=== PATIENT | male | born 1960 | race Two or more races ===

== ENCOUNTER 2025-06-04 19:32 | Inpatient (IN) | payer MEDICAID, OTHER ==
[~2025-06-04] VITALS: Ht 167.6 cm; Wt 115.7 kg
[2025-06-04] MEDS ORDERED: NOREPINEPHRINE 8MG/250ML RTU 250 ML IV ONE (19:52)
[2025-06-04] MEDS: NOREPINEPHRINE 8 MG in IV D5W 242 ML IV PRN ×2 (20:02→23:23)
[2025-06-04] MEDS ORDERED: ONDANSETRON HCL/PF 4 MG/2 ML VIAL ONE (20:17)
[2025-06-04 20:19] LABS: ALCOHOL, BLOOD 216 mg/dL (0-10); ASPARTATE AMINOTRANSFERASE 19 U/L (15-37); CALCIUM, SERUM 8.1 mg/dL (8.5-10.1); CREATININE 1.7 mg/dL (0.6-1.3); SODIUM SERUM 135 mmol/L (136-145); TOTAL PROTEIN, SERUM 7.2 g/dL (6.4-8.2); UREA NITROGEN, BLOOD 9 mg/dL (7-18)
[2025-06-04] MEDS: ONDANSETRON HCL/PF - ER 4 MG/2 ML VIAL IV ONE (20:19)
[2025-06-04] MEDS: GLUCAGON,HUMAN RECOMBINANT 1 MG/VIAL VIAL IV ONE ×2 (20:19→23:56)
[2025-06-04 20:30] LABS: PLATELET COUNT (AUTO) 303 K/uL (150-450); RED BLOOD CELL COUNT(AUTO) 4.65 MIL/uL (4.5-6.0); RED CELL DISTRIBUTION WIDTH 14.5 % (11.5-15.0); WHITE BLOOD COUNT (AUTO) 5.4 K/uL (4.3-11.0)
[2025-06-04 20:38] LABS: INR 1.27 (0.91-1.10)
[2025-06-04 20:46] LABS: APPEARANCE,URINE CLEAR (CLEAR); BLOOD, URINE NEGATIVE Ery/uL (NEGATIVE); LEUKOCYTE ESTERASE ,URINE NEGATIVE (NEGATIVE); NITRITE, URINE NEGATIVE (NEGATIVE); UGLUCOSE NEGATIVE (NEGATIVE)
[2025-06-04] MEDS ORDERED: Calcium Gluconate 0.465 MEQ/ML VIAL IV ONE (20:47)
[2025-06-04 20:56] LABS: AMPHETAMINE, URINE NEGATIVE (NEGATIVE); BARBITURATE, URINE NEGATIVE (NEGATIVE); BENZODIAZEPINE, URINE NEGATIVE (NEGATIVE); CANNABINOID, URINE NEGATIVE (NEGATIVE); COCCAINE, URINE NEGATIVE (NEGATIVE); OPIATE, URINE NEGATIVE (NEGATIVE)
[2025-06-04] MEDS: Calcium Gluconate 1GM/10ML 4.65 MEQ in IV NS 0.9% 100 ML IV ONE (20:56)
[2025-06-04] MEDS: POTASSIUM CL. PREMIX PERIPHER. 50 ML IV SCH (21:20)
[2025-06-04] MEDS ORDERED: POTASSIUM CL. PREMIX PERIPHER. 150 ML ONE (22:02)
[2025-06-04] MEDS ORDERED: HYDR25TA4 PO (22:19)
[2025-06-04] MEDS ORDERED: LISI40TA13 PO (22:19)
[2025-06-04] MEDS ORDERED: CARV3.122 PO (22:19)
[2025-06-04] MEDS ORDERED: SPIR25TA6 PO (22:19)
[2025-06-04] MEDS ORDERED: CHOL500062 PO (22:19)
[2025-06-04] MEDS ORDERED: DULO30CA2 PO (22:19)
[2025-06-04] MEDS ORDERED: FURO40TA5 PO (22:19)
[2025-06-04] MEDS ORDERED: APIX5TAB4 PO (22:19)
[2025-06-04] MEDS ORDERED: TAMS-12 PO (22:19)
[2025-06-04] MEDS ORDERED: Thiamine 300 MG in IV D5W 50 ML IV SCH (22:30)
[2025-06-04] MEDS ORDERED: ACETAMINOPHEN 325 MG TABLET PO PRN (22:30)
[2025-06-04] MEDS ORDERED: NOREPINEPHRINE 8 MG in IV NS 0.9% 250 ML IV PRN (22:30)
[2025-06-04] MEDS ORDERED: GLUCAGON,HUMAN RECOMBINANT 1 MG/VIAL VIAL ONE (23:02)
[2025-06-04] MEDS: GLUCAGON,HUMAN RECOMBINANT 1 MG/VIAL VIAL ONE (23:03)
[2025-06-04 23:12] LABS: ABG BASE EXCESS -5.4 mmol/L (-2.0-3.0); ABG OXYGEN SATURATION 96.4 % (94.0-98.0); ABG PCO2 34.0 mmHg (35.0-48.0); ABG PH 7.365 (7.350-7.450); ABG PO2 95.5 mmHg (83.0-108.0); ABG TOTAL HEMOGLOBIN 14.2 G/dL (13.5-17.5); FRACTIONATED INSPIRED OXYGEN 21.0 %; SITE, ABG LEFT RADIAL
[2025-06-05] VITALS (73 sets, daily range): BP systolic 74–136; BP diastolic 45–103; TEMP 97–97.9; O2SAT 89–100
[2025-06-05] MEDS: ONDANSETRON HCL/PF 4 MG/2 ML VIAL IVP PRN (00:09)
[2025-06-05] MEDS: Thiamine 300 MG in IV D5W 100 ML IV ONE (00:12)
[2025-06-05] MEDS: NOREPINEPHRINE 8MG/250ML RTU 250 ML IV ONE (00:21)
[2025-06-05 01:13] LABS: CALCIUM, SERUM 7.8 mg/dL (8.5-10.1); CREATININE 1.3 mg/dL (0.6-1.3); PHOSPHORUS 3.3 mg/dL (2.5-4.9); SODIUM SERUM 135.0 mmol/L (136-145); UREA NITROGEN, BLOOD 10.0 mg/dL (7-18)
[2025-06-05 04:18] LABS: PLATELET COUNT (AUTO) 284 K/uL (150-450); RED BLOOD CELL COUNT(AUTO) 4.40 MIL/uL (4.5-6.0); RED CELL DISTRIBUTION WIDTH 14.6 % (11.5-15.0); WHITE BLOOD COUNT (AUTO) 10.8 K/uL (4.3-11.0)
[2025-06-05 05:36] LABS: CALCIUM, SERUM 8.0 mg/dL (8.5-10.1); CREATININE 1.2 mg/dL (0.6-1.3); SODIUM SERUM 138.0 mmol/L (136-145); UREA NITROGEN, BLOOD 11.0 mg/dL (7-18)
[2025-06-05] MEDS: THIAMINE HCL 100 MG TABLET PO SCH (08:36)
[2025-06-05] MEDS: MULTIVITAMINS,THERAGRAN 1 UDTAB TABLET PO SCH (08:36)
[2025-06-05] MEDS: FOLIC ACID 1 MG TABLET PO SCH (08:36)
[2025-06-05] MEDS: TAMSULOSIN 0.4 MG CAP.SR.24H PO SCH (08:36)
[2025-06-05] MEDS: PANTOPRAZOLE 40 MG VIAL IV SCH (08:36)
[2025-06-05] MEDS: MAGNESIUM OXIDE 400 MG TABLET PO ONE (09:52)
[2025-06-05] MEDS ORDERED: POTASSIUM CHLORIDE 20 MEQ TAB.PRT.SR PO SCH (10:00)
[2025-06-06] VITALS (81 sets, daily range): BP systolic 84–145; BP diastolic 53–126; TEMP 97.3–99; O2SAT 90–100
[2025-06-06 04:45] LABS: CALCIUM, SERUM 9.1 mg/dL (8.5-10.1); CREATININE 1.1 mg/dL (0.6-1.3); SODIUM SERUM 141.0 mmol/L (136-145); UREA NITROGEN, BLOOD 11.0 mg/dL (7-18)
[2025-06-06] MEDS: SERTRALINE HCL 25 MG TABLET PO SCH (10:00)
[2025-06-06] MEDS: POTASSIUM CHLORIDE 20 MEQ TAB.PRT.SR PO SCH (10:00)
[2025-06-07] VITALS (20 sets, daily range): BP systolic 90–125; BP diastolic 48–79; TEMP 97.9–98.6; O2SAT 97–100
[2025-06-07 04:54] LABS: CALCIUM, SERUM 8.6 mg/dL (8.5-10.1); CREATININE 0.8 mg/dL (0.6-1.3); SODIUM SERUM 140.0 mmol/L (136-145); UREA NITROGEN, BLOOD 11.0 mg/dL (7-18)
[2025-06-07] MEDS: PANTOPRAZOLE 40 MG TABLET.DR PO SCH (08:11)
[2025-06-08] VITALS: BP 105/74; TEMP 97.8; O2SAT 100
[2025-06-08 04:00] VITALS: BP 102/60; TEMP 98.1; O2SAT 100
[2025-06-08 06:37] LABS: CALCIUM, SERUM 8.8 mg/dL (8.5-10.1); CREATININE 0.7 mg/dL (0.6-1.3); SODIUM SERUM 141.0 mmol/L (136-145); UREA NITROGEN, BLOOD 8.0 mg/dL (7-18)
[2025-06-08 08:00] VITALS: BP 100/58; TEMP 98.1; O2SAT 100
[2025-06-08 16:00] VITALS: BP 118/77; TEMP 97.9; O2SAT 98
[2025-06-08 20:00] VITALS: BP 118/65; TEMP 98.1; O2SAT 96
[2025-06-09] VITALS (25 sets, daily range): BP systolic 93–163; BP diastolic 56–94; TEMP 97.9–98.2; O2SAT 87–100
[2025-06-09 07:08] LABS: CALCIUM, SERUM 8.7 mg/dL (8.5-10.1); CREATININE 0.8 mg/dL (0.6-1.3); SODIUM SERUM 141.0 mmol/L (136-145); UREA NITROGEN, BLOOD 9.0 mg/dL (7-18)
[2025-06-09] MEDS ORDERED: IV NS 0.9% 250 ML IV ONE (09:20)
[2025-06-09] MEDS ORDERED: IOHEXOL-350 100 ML VIAL IV ONE (09:20)
[2025-06-09] MEDS: LORAZEPAM INJ 2 MG/ML VIAL IV PRN (09:38)
[2025-06-09] MEDS: ATORVASTATIN 40 MG TABLET PO SCH (10:30)
[2025-06-09 11:26] LABS: PLATELET COUNT (AUTO) 234 K/uL (150-450); RED BLOOD CELL COUNT(AUTO) 4.52 MIL/uL (4.5-6.0); RED CELL DISTRIBUTION WIDTH 14.9 % (11.5-15.0); WHITE BLOOD COUNT (AUTO) 7.0 K/uL (4.3-11.0)
[2025-06-09 11:39] LABS: INR 1.05 (0.91-1.10)
[2025-06-09 11:40] LABS: CALCIUM, SERUM 8.7 mg/dL (8.5-10.1); CREATININE 0.9 mg/dL (0.6-1.3); SODIUM SERUM 139 mmol/L (136-145); UREA NITROGEN, BLOOD 9 mg/dL (7-18)
[2025-06-09 11:46] LABS: LDL 100 mg/dL (0-99)
[2025-06-09] MEDS: LEVETIRACETAM (500MG) 500 MG in IV NS 0.9% 100 ML IV SCH (12:24)
[2025-06-09] MEDS: ENOXAPARIN SODIUM 100 MG/ML DISP.SYRIN SQ SCH (12:25)
[2025-06-09] MEDS: ASPIRIN 300 MG/SUPP.RECT RC SCH (12:41)
[2025-06-09] MEDS ORDERED: ATORVASTATIN 10 MG TABLET PO SCH ×2 (13:00→22:00)
[2025-06-09] MEDS: IV NS 0.9% 250 ML IV PRN (23:01)
[2025-06-10] VITALS (24 sets, daily range): BP systolic 106–141; BP diastolic 70–101; TEMP 97.8–98.4; O2SAT 93–100
[2025-06-10] MEDS: ASPIRIN 81 MG TAB.CHEW PO SCH (12:16)
[2025-06-10] MEDS ORDERED: ASPI-1169 PO (12:17)
[2025-06-10] MEDS ORDERED: THIA100T74 PO (12:17)
[2025-06-10] MEDS ORDERED: LEVE500T9 PO (12:17)
== END 2025-06-10 17:08 | disposition home or self-care (01) | DRG 817 ==
LOC: ER 19:39 → ICU 21:43 → TELE1 06-07 16:54 → TELE 06-07 21:41 → MED 06-08 19:13 → ICU 06-09 09:30 → MED 06-10 14:07
PROVIDERS: ADMIT Registered Nurse Psychiatric/Mental Health; ATTEND Nurse Practitioner Acute Care
DX: T44.7X2A Poisoning by beta-adrenoreceptor antagonists, intentional self-harm, initial encounter (principal); G92.8 Other toxic encephalopathy; D68.69 Other thrombophilia; N17.9 Acute kidney failure, unspecified; G83.84 Todd's paralysis (postepileptic); I95.9 Hypotension, unspecified; F29 Unspecified psychosis not due to a substance or known physiological condition; F33.1 Major depressive disorder, recurrent, moderate; I48.91 Unspecified atrial fibrillation; E83.42 Hypomagnesemia; E87.6 Hypokalemia; F10.129 Alcohol abuse with intoxication, unspecified; Y90.7 Blood alcohol level of 200-239 mg/100 ml; I10 Essential (primary) hypertension; I69.328 Other speech and language deficits following cerebral infarction; T45.512A Poisoning by anticoagulants, intentional self-harm, initial encounter; F10.139 Alcohol abuse with withdrawal, unspecified; G40.89 Other seizures; T42.6X2A Poisoning by other antiepileptic and sedative-hypnotic drugs, intentional self-harm, initial encounter; E11.9 Type 2 diabetes mellitus without complications; Z20.822 Contact with and (suspected) exposure to COVID-19; Y92.009 Unspecified place in unspecified non-institutional (private) residence as the place of occurrence of the external cause
CPT/HCPCS: 36415; 36600; 70450-TC; 70496-TC; 70498-TC; 71045-TC; 80048-TC; 80061-TC; 80076-TC; 82803-TC; 82962-TC; 83735-TC; 84100-TC; 84484-TC; 85025-TC; 85730-TC; 86850-TC; 87081-TC; 92526; 92611; A4223; G0378; G0480; J0612; J1610; J1650; J1953; J2060; J2405; J2470; J3411; J3480; J7030; J7040; J7050; J7060; Q9967